=== PATIENT | male | born 1985 | race American Indian/Alaskan Native ===

== ENCOUNTER 2016-09-30 10:28 | Emergency (ER) | payer OTHER ==
[2016-09-30 11:33] VITALS: BP 134/83
[2016-09-30] MEDS ORDERED: DECADRON IM STA (15:06)
[2016-09-30] MEDS ORDERED: TORADOL IM ONE (15:06)
--- NOTE | 2016-09-30 15:06 | Emergency Department Report ---
HPI - General Chief Complaint: Upper Respiratory Infection Time Seen by Provider: 09/30/16 13:36 - HPI HPI: Patient here reporting sinus condition congestion, facial pain and pressure, teeth hurting times one week. Denies any fever or chills denies any nausea vomiting. Pain is 4 out of 10. Denies any shortness of breath or chest pain. Reports occasional cough that is worse at night. She reports that he is taking Geovanna with no relief. ED Past Medical Hx - Past Medical History Previous Medical History?: No - Surgical History Past Surgical History?: No - Family History Family history: no significant - Social History Smoking Status: Never Smoker Substance Use Type: None - Medications Home Medications: Home Medications Medication Instructions Recorded Confirmed Last Taken Type Amoxicillin [Amoxicillin TAB] 875 mg PO BID #20 tablet 09/30/16 Unknown Rx Fluticasone [Flonase] 1 spray NS QDAY #1 bottle 09/30/16 Unknown Rx Ibuprofen [Motrin] 600 mg PO Q8H PRN #15 tablet 09/30/16 Unknown Rx ED Review of Systems ROS: Stated complaint: POSS SINUS INFECTION Other details as noted in HPI Comment: All other systems reviewed and negative Constitutional: denies: chills, fever ENT: dental pain, congestion, other (sinus pain and pressure). denies: ear pain , throat pain Respiratory: cough. denies: shortness of breath, SOB with exertion, SOB at rest , stridor, wheezing Cardiovascular: denies: chest pain, palpitations, edema, syncope Gastrointestinal: denies: abdominal pain, nausea, vomiting, diarrhea Musculoskeletal: denies: back pain, arthralgia Skin: denies: rash Neurological: denies: headache, weakness, numbness, paresthesias, abnormal gait , vertigo Physical Exam - Physical Exam Vital Signs: Vital Signs 09/30/16 11:28 Temperature 97.7 F Pulse Rate 75 Respiratory 16 Rate Blood Pressure 134/83 O2 Sat by Pulse 100 Oximetry General: This is a 30-year-old male well-nourished well-developed in no acute distress. Physical Exam: Head: Normocephalic atraumatic Mouth: Moist, no pharyngeal exudate or erythema. Uvula is midline and oral airway is patent. No gingival enlargement or dental tenderness. No facial swelling. No peritonsillar abscesses. Some dental caries noted. Patient has good ON his teeth. Neck: Supple, no C-spine tenderness, no tracheal deviation. Nontender to palpate. no adenopathy Ears: Bilateral TMs congested without erythema .bilateral EAC without any redness swelling or drainage Eyes: Bilateral pupils equal and reactive to light, bilateral EOM intact. Bilateral sclera and conjunctiva without injection. Normal accommodation Nose: Mucosa moist, positive congestion with erythema. Positive clear drainage. maxillary and frontal sinus tender to palpate. Lungs: Clear to auscultate bilaterally no rhonchi wheezes or rales. Normal work of breathing extremity; No CCE. +2 pulses. No neurovascular compromise Cardiovascular: S1-S2, regular rate rhythm. No murmurs. Skin: clean Dry and intact no rash no lesions Psych: Normal mood and behavior ED Course Vital Signs 09/30/16 11:28 Temperature 97.7 F Pulse Rate 75 Respiratory 16 Rate Blood Pressure 134/83 O2 Sat by Pulse 100 Oximetry - Reevaluation(s) Reevaluation #1: 09/30/16 15:26 Patient given Toradol 60 mg and Decadron 10 mg IM and emergency room. ED Medical Decision Making - Medical Decision Making ED course: I explained to patient that he has a sinus infection and will be treated with antibiotic. He voiced understanding of discharge diagnosis and treatment plan. Pt Discharged home with prescription for amoxicillin, Flonase and to continue Geovanna. Critical care attestation.: If time is entered above; I have spent that time in minutes in the direct care of this critically ill patient, excluding procedure time. ED Disposition Clinical Impression: Toothache Sinusitis, acute Qualifiers: Sinusitis location: unspecified location Recurrence: not specified as recurrent Qualified Code(s): J01.90 - Acute sinusitis, unspecified Disposition: DISCHARGED TO HOME OR SELFCARE Is pt being admited?: No Does the pt Need Aspirin: No Condition: Stable Instructions: Sinusitis (ED) Additional Instructions: Please Continue geovanna Please Nostrils out with Nasal saline Prescriptions: Amoxicillin [Amoxicillin TAB] 875 mg PO BID #20 tablet Fluticasone [Flonase] 1 spray NS QDAY #1 bottle Ibuprofen [Motrin] 600 mg PO Q8H PRN #15 tablet PRN Reason: Pain Referrals: PRIMARY CARE, [Primary Care Provider] - 3-5 Days [facility] [Outside] - 3-5 Days [facility] [Outside] - 3-5 Days Forms: Work/School Release Form(ED)
== END 2016-09-30 15:38 | disposition home or self-care (01) ==
LOC: EDBD 10:28 → ED 10:28
DX: K08.89 Other specified disorders of teeth and supporting structures (principal); J01.90 Acute sinusitis, unspecified; Z91.013 Allergy to seafood
CPT/HCPCS: 96372; 99282; J1100; J1885

== ENCOUNTER 2017-11-07 09:08 | Emergency (ER) | payer OTHER ==
[2017-11-07 09:26] VITALS: BP 111/66
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
[2017-11-07] MEDS ORDERED: THERMAZENE 50 GRAM TP ONE (09:53)
[2017-11-07] MEDS ORDERED: ULTRAM PO ONE (09:53)
[2017-11-07] MEDS ORDERED: BOOSTRIX IM ONE (09:53)
== END 2017-11-07 10:48 | disposition home or self-care (01) ==
LOC: ED 09:08
DX: T24.101A Burn of first degree of unspecified site of right lower limb, except ankle and foot, initial encounter (principal); T22.021A Burn of unspecified degree of right elbow, initial encounter; V29.9XXA Motorcycle rider (driver) (passenger) injured in unspecified traffic accident, initial encounter; Z91.013 Allergy to seafood; Y93.89 Activity, other specified; Y92.89 Other specified places as the place of occurrence of the external cause; Y99.8 Other external cause status
CPT/HCPCS: 90471; 90715; 99282